=== PATIENT | female | born 1965 | race Two or more races ===

== ENCOUNTER → 2025-08-12 | Outpatient (CLI) | payer BC, SELFPAY ==
[2025-08-12 18:21] LABS: Hematocrit 39.3 % (37-47); Hemoglobin 12.7 g/dL (12.0-15.0); Immature Granulocytes Count 0.020 X10^3/uL (0.0-0.0); Mean Corp Hgb Conc 32.3 g/dL (32-36); Mean Corpuscular Volume 86.0 fL (81-99); Mean Platelet Vol. 11.1 fl (6.2-12.0); NRBC Flagged by Analyzer 0 % (0-5); Platelet Count 388 K/mm3 (150-450); RBC Distribution Width CV 13.7 % (11.6-14.6); RBC Distribution Width SD 42.8 fl (35.1-43.9); Red Blood Count 4.57 M/mm3 (4.2-5.4); White Blood Count 6.9 K/mm3 (4.4-11.0)
[2025-08-12 19:26] LABS: AST(SGOT) 43 U/L (<=31); Alanine Aminotransfer ALT/SGPT 77 U/L (<=34); Albumin, Serum 4.1 g/dL (3.5-5.0); Alkaline Phosphatase 73 U/L (35-104); Anion Gap 10 (5-15); BUN 13 mg/dL (4-19); BUN/Creat Ratio 15.9 RATIO (10-20); Calcium,Total 9.8 mg/dL (7.6-11.0); Carbon Dioxide 24.9 mmol/L (21.0-32.0); Chloride 106 mmol/L (98-108); Globulin 3.2 g/dL (2.2-4.2); Glucose 92 mg/dL (70-99); Potassium 4.1 mmol/L (3.3-5.1)
[2025-08-12 19:39] LABS: Free T3 3.2 pg/mL (2.18-3.98); Vitamin D,25 Hydroxy 61.0 ng/mL (30-100)
[2025-08-14 08:09] LABS: PROGESTERONE 0.6 ng/mL (.)
== END | disposition home or self-care (01) ==
LOC: LABSPEC 16:59
PROVIDERS: Visit Provider Nurse Practitioner Family
DX: E55.9 Vitamin D deficiency, unspecified (principal); R61 Generalized hyperhidrosis; D68.8 Other specified coagulation defects; R68.81 Early satiety; E28.9 Ovarian dysfunction, unspecified
CPT/HCPCS: 80053; 82306; 82627; 82670; 84144; 84403; 84439; 84443; 84481; 85025; 82626